=== PATIENT | male | born 1945 | race Caucasian/White ===

== ENCOUNTER 2019-04-01 10:13 | Outpatient (CLI) | payer OTHER ==
--- NOTE | 2019-04-01 11:17 | RAD ---
Cervical spine neutral lateral, extension lateral, and flexion lateral views: 04/01/2019 COMPARISON: None HISTORY: Cervical pain FINDINGS: Neutral lateral examination demonstrates mild anterolisthesis at C3-4 measuring 2-3 mm. Macie tral imaging also demonstrates minimal anterolisthesis at C2-3 measuring in the 2-3 mm range. At C5-6 and C6-7 there is disc space narrowing with degenerative endplate change as well as anterior osteophyte formation. The extension imaging demonstrates anterolisthesis at C2-3 measuring approximately 2-3 mm and at C3-4 measuring approximately 2-3 mm. On flexion imaging there is anterolisthesis at C2-C3 measuring approximately 3 mm, and at C3-4 measuring approximately 2-3 mm. IMPRESSION: Mild multilevel anterolisthesis within the cervical spine. Degenerative changes as detail ed above.
--- NOTE | 2019-04-01 11:20 | RAD ---
3 views of the lumbar spine: 04/01/2019 HISTORY: Back pain with right lower extremity radiculopathy FINDINGS: Neutral lateral flexion and extension imaging is provided. There is a mild superior endplat e fracture of the L2 vertebral body, as seen on prior CT performed 05/21/2013. There is multilevel disc space narrowing throughout the lumbar spine, most prominent at the L4-5 level. There is anterior osteophyte formation at multiple levels within the lumbar spine as well. Bilateral laminectomy changes are present at L3, L4, and L5. Prominent multilevel lower lumbar spine facet hypertrophy is p resent. On the upright neutral lateral radiograph there is no significant anterolisthesis or retrolisthesis. There is extensive atherosclerotic calcification of the abdominal aorta. The extension imaging and flexion imaging demonstrates no significant anterolisthesis or retrolisthes is. IMPRESSION: Severe multilevel degenerative change within the lumbar spine as detailed above. No acute osseous abnormality is evident.
== END 2019-04-01 10:14 | disposition home or self-care (01) ==
LOC: TBSIIMAG 10:13
PROVIDERS: ATTEND Neurological Surgery
DX: M50.20 Other cervical disc displacement, unspecified cervical region (principal); M48.062 Spinal stenosis, lumbar region with neurogenic claudication; M47.816 Spondylosis without myelopathy or radiculopathy, lumbar region; M43.12 Spondylolisthesis, cervical region; M47.812 Spondylosis without myelopathy or radiculopathy, cervical region
CPT/HCPCS: 72040; 72100

== ENCOUNTER 2019-05-21 06:36 | Outpatient (CLI) | payer OTHER ==
[2019-05-21 13:23] LABS: Hemoglobin 13.2 g/dL (14.0-18.0); Mean Corpuscular HGB CONC 34.6 g/dL (32.0-36.0); Mean Corpuscular Hemoglobin 31.1 pg (27.0-31.0); Mean Corpuscular Volume 90.1 fL (78.0-98.0); Mean Platelet Volume 6.6 fL (7.4-10.4); Platelet Count 292 thou/uL (130-400); RBC Distribution Width 12.6 % (11.5-14.5); Red Blood Cell (RBC) Count 4.25 mill/uL (4.70-6.10); White Blood Cell (WBC) Count 7.7 thou/uL (4.8-10.8)
[2019-05-21 13:32] LABS: Prothrombin Time 13.1 SEC (12.0-14.7)
[2019-05-21 13:33] LABS: PTT 31.6 SEC (22.9-36.1)
[2019-05-21 13:51] LABS: Anion Gap 12 mmol/L (10-20); BUN (Urea Nitrogen) 17 mg/dL (8.4-25.7); Calc. Creatinine Clearance 0 mL/min (70-130); Calcium 9.1 mg/dL (7.8-10.44); Carbon Dioxide 30 mmol/L (23-31); Chloride 95 mmol/L (98-107); Estimated GFR-MDRD 83; Glucose 108 mg/dL (83-110); Potassium 3.6 mmol/L (3.5-5.1); Sodium 133 mmol/L (136-145)
== END 2019-05-21 06:37 | disposition home or self-care (01) ==
LOC: LABBT 06:36
PROVIDERS: ATTEND Neurological Surgery
DX: Z01.812 Encounter for preprocedural laboratory examination (principal); M47.12 Other spondylosis with myelopathy, cervical region
CPT/HCPCS: 80048; 85027; 85610; 85730

== ENCOUNTER 2019-05-23 05:22 | Day surgery (SDC) | payer OTHER ==
[2019-05-21 11:10] VITALS: BMI 22.8
[2019-05-23] MEDS ORDERED: Thrombin 5000 UNITS/5 ML VIAL ONE (06:09)
[2019-05-23] MEDS ORDERED: Sodium Chloride 0.9% 10 ML ONE (06:09)
[2019-05-23] MEDS ORDERED: Fentanyl 100 MCG/2 ML VIAL ONE ×2 (06:55→10:56)
[2019-05-23] MEDS ORDERED: Midazolam HCl 2 mg/2 ml Vial ONE (06:55)
--- NOTE | 2019-05-23 08:16 | HP ---
HISTORY OF PRESENT ILLNESS: Mr. Garcia is a 73-year-old man, who returns to our clinic with earlier for severe neurogenic claudication. However, he had brisk reflexes on that exam along with some hand dysfunction and imbalance, which prompted imaging of the cervical spine. The patient continues to fall from imbalance and has been dropping things from his hands often. In addition, lumbar stenosis causes neurogenic claudication. REVIEW OF SYSTEMS: A 10-point review of systems is completed and is negative other than stated in the above HPI. MEDICAL HISTORY: Asthma, hyperlipidemia, cataracts, hypertension. PAST SURGICAL HISTORY: Right L5-S1 diskectomy at 72, right L5-S1 discectomy at 78, L3 through L5 decompression laminectomy in 2017. FAMILY HISTORY: Father is . Mother is . SOCIAL HISTORY: The patient is a former smoker. Has exposure to other tobacco uses. Uses alcohol. Denies illicit drugs and is sexually active. MEDICATIONS: 1. Albuterol. 2. Aspirin 81 mg. 3. Atenolol. 4. Budesonide. 5. Formoterol fumarate. 6. Duloxetine. 7. Ferrous sulfate. 8. Gabapentin. 9. Hydrochlorothiazide. 10. Vyvanse. 11. Multivitamin. 12. Omeprazole. ALLERGIES: NO KNOWN DRUG ALLERGIES. PHYSICAL EXAMINATION: CONSTITUTIONAL: The patient is alert and oriented. Nontoxic appearing. RESPIRATIONS: Normal work of breathing on room air. NEUROLOGIC: The patient's tandem gait impossible. Motor exam, intrinsic hand muscle atrophy and weakness. Sensory exam is nondermatomal, loss of fingers sensation. Reflex exam, overly brisk knee and ankle jerks. IMAGING: Cervical spine MRI, pain at C1-2 cord posteriorly. Cord compression at C5-6 and some at C6-7. ASSESSMENT AND PLAN: Mr. Garcia is a 73-year-old, who has a cervical disk disorder at C5-6 and C6-[address] Delgado would like to do an anterior cervical diskectomy at C5 through 7. The patient states that he understands his risks and is willing to proceed with surgery. Job ID: [id number]
[2019-05-23] MEDS ORDERED: Morphine 2 MG/ML SYRINGE ONE (13:06)
[2019-05-23] MEDS ORDERED: Rocuronium Bromide 10 MG/ML (10ML VIAL) ONE (13:15)
[2019-05-23] MEDS ORDERED: Ondansetron PF 4 MG/2 ML Vial ONE (13:15)
[2019-05-23] MEDS ORDERED: Lidocaine 1% PF 5 ML VIAL ONE (13:15)
[2019-05-23] MEDS ORDERED: PROPOFOL 200 MG/20 ML VIAL ONE (13:15)
[2019-05-23] MEDS ORDERED: Glycopyrrolate 0.2 MG/ML 5 ML SYRINGE ONE (13:15)
[2019-05-23] MEDS ORDERED: ePHEDrine/0.9% NaCl/PF SYRINGE 50 mg/10 ml ONE (13:15)
--- NOTE | 2019-05-23 14:07 | OP ---
DATE OF PROCEDURE: 05/23/2019 BOX MAKER: Alva Nguyen PA-C PREOPERATIVE INDICATION: Prevent neurological deterioration. PREOPERATIVE DIAGNOSES: Cervical intervertebral disk disease with cord compression at C5-C6 and C6-C7, early spondylotic myelopathy. POSTOPERATIVE DIAGNOSES: Cervical intervertebral disk disease with cord compression at C5-C6 and C6-C7, early spondylotic myelopathy. PROCEDURES PERFORMED: Anterior cervical diskectomy, intervertebral arthrodesis, placement of intervertebral biomechanical device at C5-C6 and C6-C7, anterior cervical plating at C5-C6 and C6-C7, local morselized autograft, morselized allograft, operating microscope. PREOPERATIVE MEDICATION: Ancef 2 g IV. DRAIN NUMBER: Zero. DRAIN TYPE: None. DESCRIPTION OF PROCEDURE: The patient was brought to the operating room. General endotracheal anesthesia was induced. The patient was carefully positioned on the operating table with his head supported by a gel-filled donut-shaped headrest. A lateral fluoro radiograph was used to plan our incision. The right side of the neck was sterilely prepped and draped. We opened our incision with a 10 blade knife and controlled bleeding with bipolar cautery. We dissected sharply to the platysma and cut this muscle in line with our incision. We continued our dissection medial to the sternocleidomastoid and lateral to the trachea and esophagus. We arrived at the prevertebral space and placed a marker at C5-C6. A lateral fluoro radiograph confirmed the levels upon which we were operating. We elevated the longus colli muscles off the anterior surface of C5, C6, and C7, and placed a self-retaining lateral retractor beneath the muscles. Distraction pins were placed in C5 and C7 and we distracted across the two intervening interspaces. These interspaces were opened with a 15-blade knife. We removed disk contents using curettes and rongeurs. The operating microscope was brought into the field. Under microscopic magnification and using microsurgical techniques, we carefully removed the remainder of the intervertebral disk. We accessed the ventral epidural space with a micro curette at both the interspaces. We used 1 and then 2 mm Kerrison rongeurs. We removed posterior osteophytes and posterior longitudinal ligament from one neural foramen all the way to the other neural foramen at C5-C6 and again at C6-C7. Once the dura was well decompressed, we turned our attention to arthrodesis. With curettes, we prepared the endplates for grafting. We measured the height of each interspace to 7 mm with a bone rasp. We brought two separate 7 mm PEEK intervertebral grafts into the field. Osteophytes were removed during our decompression were cleaned of soft tissue attachments, morcellized and added into demineralized bone matrix as our fusion substrate. The substrate was used to fill the interbody devices and these were advanced into the interspaces under radiographic guidance to the appropriate depth. I took the operating microscope out of the field and removed our distraction pins. The 31 mm anterior cervical plate was brought into the field. We drilled company pilot holes through the plate into the vertebral bodies at C5, C6, and C7, and we affixed the plate with fixed angle screws at C7 and variable angle screws at C5 and C6. These screws were 14 mm in length. We engaged the locking mechanism over each of the 6 screws. AP and lateral fluoro radiographs confirmed adequate positioning of our instrumentation. We irrigated with bacitracin irrigation. We closed the wound in anatomical layers and we applied sterile dressing. This was a clean case, no contamination. Job ID: [id number]
[2019-05-23] MEDS ORDERED: Tamsulosin HCl 0.4 MG CAP ONE (16:27)
[2019-05-23] MEDS ORDERED: HYDROcodone/Acetaminophen 5/325 mg Tablet ONE ×2 (18:15)
== END 2019-05-23 20:30 | disposition home or self-care (01) ==
LOC: SDC 05:22
PROVIDERS: ATTEND Neurological Surgery
PROC: 0RG20A0 Fusion of 2 or more Cervical Vertebral Joints with Interbody Fusion Device, Anterior Approach, Anterior Column, Open Approach (ICD-10-PCS; principal; 2019-05-23)
PROC: 0RT30ZZ Resection of Cervical Vertebral Disc, Open Approach (ICD-10-PCS; principal; 2019-05-23)
DX: M50.022 Cervical disc disorder at C5-C6 level with myelopathy (principal); M47.12 Other spondylosis with myelopathy, cervical region; M48.062 Spinal stenosis, lumbar region with neurogenic claudication; J45.909 Unspecified asthma, uncomplicated; E78.5 Hyperlipidemia, unspecified; I10 Essential (primary) hypertension; Z87.891 Personal history of nicotine dependence; Z79.82 Long term (current) use of aspirin; Z79.899 Other long term (current) drug therapy; Z98.890 Other specified postprocedural states
CPT/HCPCS: 51798; 76000; C1713; C1776; J0690; J2001; J2250; J2270; J2405; J2704; J3010; J3490; L0174

== ENCOUNTER 2019-06-10 13:52 | Outpatient (CLI) | payer OTHER ==
--- NOTE | 2019-06-10 14:12 | RAD ---
EXAM: XR Lumbar Spine 2 Or 3 View PROVIDED CLINICAL HISTORY: Lumbar radiculopathy. COMPARISON: 04/01/2019. FINDINGS: There is right convex scoliosis of the thoracolumbar spine centered at the L2-3 level. Multilevel ost eophytes are present. There is narrowing of the intervertebral disc spaces at all levels greatest involving the lower lumbar spine. Compression fractures of the L1 and L2 vertebral bodies are again s een with degree of height loss unchanged from prior study. Laminectomy defects are again seen at the L3-4 and L4-5 levels. Anterior osteophyte formation is seen at multiple levels. There is straight ening of the normal lumbar curvature. No abnormal translational motion is seen between the flexion and extension views of the lumbar spine. Prominent vascular calcifications are again seen in the abdominal aorta and involving the iliac arter ies. IMPRESSION: 1. Right convex scoliosis with multilevel degenerative changes similar to prior study. 2. Stable height loss of compression fractures involving the L1 and L2 vertebral bodies.
--- NOTE | 2019-06-10 14:18 | RAD ---
EXAM: XR Cerv Sp Ap Lat STANDARD PROVIDED CLINICAL HISTORY: Cervical HNP. COMPARISON: 04/01/2019 FINDINGS: There has been interval postsurgical changes related to anterior cervical fusion with an anterior wu te and screws transfixing the C5-6 and C6-7 levels. Intradiscal prostheses are present at these levels. No hardware complication is seen. C1 to the cervicothoracic junction is seen on the lateral v iew. No fracture or subluxation is seen. There is straightening of the normal cervical lordotic curvature. The odontoid is obscured on the odontoid views due to overlying osseous structures. Mild d egenerative disc changes are seen in the cervical spine. Prevertebral soft tissues are within normal limits. There is been no other interval change. Dense vascular calcifications are seen in the left carotid arteries. IMPRESSION: 1. Interval postsurgical changes related to anterior cervical fusion at the C5-6 and C6-7 levels. 2. Prominent vascular calcifications in the left carotid arteries.
== END 2019-06-10 13:53 | disposition home or self-care (01) ==
LOC: TBSIIMAG 13:52
PROVIDERS: ATTEND Neurological Surgery
DX: M47.26 Other spondylosis with radiculopathy, lumbar region (principal); M50.20 Other cervical disc displacement, unspecified cervical region; I65.22 Occlusion and stenosis of left carotid artery; M41.86 Other forms of scoliosis, lumbar region; S32.019D Unspecified fracture of first lumbar vertebra, subsequent encounter for fracture with routine healing; S32.029D Unspecified fracture of second lumbar vertebra, subsequent encounter for fracture with routine healing; Z98.1 Arthrodesis status
CPT/HCPCS: 72040; 72100

== ENCOUNTER 2019-07-22 14:36 | Outpatient (CLI) | payer OTHER ==
--- NOTE | 2019-07-22 15:03 | RAD ---
Cervical spine 4 views: 07/22/2019 COMPARISON: 06/10/2019 HISTORY: Cervical radiculopathy FINDINGS: Anterior discectomy and fusion hardware is present at C5-6/C6-7. On the swimmer's lateral view there is anterolisthesis at C3-4 measuring approximately 4 mm, increase d from the standard lateral view which demonstrates less than 2 mm of anterolisthesis at C3-4. Open-mouth odontoid view demonstrates a grossly unremarkable dens and C1-2 articulation. Frontal imaging demonstrates multilevel mid cervical spine facet and uncovertebral osteophyte formati on, left greater than right. There is atherosclerotic calcification overlying the carotid vasculature on the left. IMPRESSION: Degenerative and postoperative change within the cervical spine as detailed above. Chris listhesis at C3-4, most prominent on the swimmer's lateral view.
--- NOTE | 2019-07-22 15:07 | RAD ---
EXAM: XR Lumbar Spine 2 Or 3 View PROVIDED CLINICAL HISTORY: Lumbar radiculopathy. Difficulty walking and back pain. History of back surgery. COMPARISON: 06/10/2019 FINDINGS: Again noted are compression fractures involving the L1 and L2 vertebral bodies with suggestion of a m ild compression fracture involving the superior endplate of the T12 vertebral body. The fracture deformities are overall stable compared to the prior exam. No new compression fracture is seen. Promi nent anterior osteophytes are present. There is narrowing of the intervertebral disc spaces at all levels of the lower thoracic as well as involving the lumbar spine. Facet degenerative changes in the lower lumbar spine with laminectomy defects again present in the lower lumbar spine. There is no evidence of a subluxation or abnormal translational motion seen between the flexion and extension vie ws lumbar spine. Vascular calcifications are again seen in the abdominal aorta and involving the iliac arteries. IMPRESSION: 1. Stable degree of height loss involving compression fractures of the superior endplates of the T12, L1, and L2 vertebral bodies. 2. Multilevel degenerative changes as well as postoperative changes. 3. Straightening of normal lumbar curvature.
== END 2019-07-22 14:37 | disposition home or self-care (01) ==
LOC: TBSIIMAG 14:36
PROVIDERS: ATTEND Neurological Surgery
DX: M47.22 Other spondylosis with radiculopathy, cervical region (principal); M54.16 Radiculopathy, lumbar region; M48.54XA Collapsed vertebra, not elsewhere classified, thoracic region, initial encounter for fracture; M48.56XA Collapsed vertebra, not elsewhere classified, lumbar region, initial encounter for fracture; Z98.1 Arthrodesis status
CPT/HCPCS: 72040; 72100

== ENCOUNTER 2019-07-30 10:54 | Outpatient (CLI) | payer OTHER ==
[2019-07-30 11:58] LABS: PTT 28.8 SEC (22.9-36.1); Prothrombin Time 13.2 SEC (12.0-14.7)
[2019-07-30 12:13] LABS: Hemoglobin 12.8 g/dL (14.0-18.0); Mean Corpuscular HGB CONC 33.3 g/dL (32.0-36.0); Mean Corpuscular Hemoglobin 30.6 pg (27.0-31.0); Mean Platelet Volume 7.2 fL (7.4-10.4); Platelet Count 246 thou/uL (130-400); RBC Distribution Width 12.2 % (11.5-14.5); Red Blood Cell (RBC) Count 4.17 mill/uL (4.70-6.10); White Blood Cell (WBC) Count 7.1 thou/uL (4.8-10.8)
== END 2019-07-30 10:55 | disposition home or self-care (01) ==
LOC: LABBT 10:54
PROVIDERS: ATTEND Neurological Surgery
DX: Z01.818 Encounter for other preprocedural examination (principal); M47.816 Spondylosis without myelopathy or radiculopathy, lumbar region; M48.061 Spinal stenosis, lumbar region without neurogenic claudication
CPT/HCPCS: 85027; 85610; 85730; 93005; 93010

== ENCOUNTER 2019-08-01 10:16 | Inpatient (IN) | payer OTHER ==
[~2019-08-01 10:16] MED LIST: Dexamethasone 20 MG/5 ML VIAL ONE; Glycopyrrolate 0.2 MG/ML 5 ML SYRINGE ONE; Lidocaine 1% PF 5 ML VIAL ONE; Ondansetron PF 4 MG/2 ML Vial ONE; PHENYLEPHRINE-NS 100 MCG/ML 10 ML SYRINGE ONE; PROPOFOL 200 MG/20 ML VIAL ONE; Rocuronium Bromide 10 MG/ML (10ML VIAL) ONE; ePHEDrine/0.9% NaCl/PF SYRINGE 50 mg/10 ml ONE
[2019-08-01] MEDS ORDERED: Thrombin 5000 UNITS/5 ML VIAL ONE (11:50)
[2019-08-01] MEDS ORDERED: Bupivacaine PF 0.5% 30 ML VIAL ONE (11:50)
--- NOTE | 2019-08-01 12:01 | HP ---
REASON FOR ADMISSION: "I'm here for my low back surgery. " HISTORY OF PRESENT ILLNESS: Kunal Garcia returns to [facility]. He has been a patient in our clinic and was referred to us for severe neurogenic claudication. His regional examination suggested myelopathy and indeed there was cord compression in the cervical spine. We decompressed the cord at C5-C6 and C6-7 with ACDF. He has recovered nicely from the surgery but now wants to address his low back. He has had back surgery before, but his neurogenic claudication is worsening. He cannot stand for more than 5 minutes without severe aching in both posterior thighs. The aching turns to numbness and eventually leads to weakness. He has to sit or bend over in order to relieve the symptoms. He has not lost strength in the sitting position, but he can hardly stand long enough to walk 100 yards. His imaging suggested severe lumbar stenosis above and at levels of previous decompression as well as foraminal disease. We are to address those. PAST MEDICAL HISTORY: Asthma, hyperlipidemia, cataracts, and hypertension. PAST SURGICAL HISTORY: ACDF C5-6 and C6-7 in 2019. Right L5-S1 diskectomy x2 in the and 1980s. He had an L3-L5 laminectomy in 2017. FAMILY HISTORY: His father is as is his mother. SOCIAL HISTORY: Mr. Garcia is a former smoker, recently having quit. He drinks alcoholic beverages from time to time, but avoids illicit drugs. ADMISSION MEDICATIONS: 1. Albuterol. 2. Aspirin. 3. Atenolol. 4. Budesonide/formoterol fumarate. 5. Duloxetine. 6. Ferrous sulfate. 7. Gabapentin. 8. Hydrochlorothiazide. 9. Vyvanse. 10. Multivitamins. 11. Omeprazole. 12. Sildenafil citrate. ALLERGIES: NO KNOWN DRUG ALLERGIES. REVIEW OF SYMPTOMS: Otherwise negative. PHYSICAL EXAMINATION: GENERAL: Mr. Garcia is 5 feet 9 inches tall, weighs about 160 pounds. NEUROLOGIC: On examination, Mr. Garcia is wide awake. His speech is fluent without dysarthria, dysphagia. His cognitive function is intact. His motor examination of lower extremities reveals normal strength in the iliopsoas and the quadriceps and hamstring. There is a right-sided weakness in the EHL, but the anterior tib is about 4/5 compared to normal on the left. The sensory examination of lower extremities reveals decreased sensation in the L5 distribution on the right foot including the great toe. Reflexes are normal and symmetric at the knees and the ankles. His clonus is present, but improved since ACDF. ADMISSION FINDINGS AND TEST RESULTS: MR imaging of the lumbar spine shows previous decompression from L3 to the sacrum. He has L2-3 stenosis along with L3-4 stenosis. There is foraminal disease on the right at L5-S1. Flexion/extension, no instability. IMPRESSION: 1. Neurogenic claudication, severe. 2. Lumbar spinal stenosis. 3. Lumbar foraminal stenosis. Mr. Garcia made a good recovery from ACDF. He would like his neurogenic claudication treated. We will take him to the operating room for decompressive laminectomy. We will address L5-S1 foramen as well. We are going to avoid fusion. INFORMED CONSENT: Discussed in the office at length. Job ID: [id number]
[2019-08-01] MEDS ORDERED: Fentanyl 100 MCG/2 ML VIAL ONE ×3 (12:15→16:19)
[2019-08-01] MEDS ORDERED: Promethazine HCl 25 MG/ML VIAL SLOW IVP PRN ×2 (13:34→17:33)
[2019-08-01] MEDS ORDERED: Ondansetron HCl/PF 4 MG/2 ML Vial IVP PRN ×2 (13:34→17:33)
[2019-08-01] MEDS ORDERED: HYDROmorphone 2 MG/ML VIAL SLOW IVP PRN (13:34)
[2019-08-01] MEDS ORDERED: Meperidine HCl/PF 25 MG/ML VIAL SLOW IVP PRN (13:34)
[2019-08-01] MEDS ORDERED: SUGAMMADEX SODIUM 200 MG/2 ML VIAL ONE (17:20)
[2019-08-01] MEDS ORDERED: Acetaminophen/Codeine 30-300mg Tablet PO PRN ×2 (17:22)
[2019-08-01] MEDS ORDERED: Milk Of Magnesia 30 ML UDCUP PO PRN (17:22)
[2019-08-01] MEDS ORDERED: diphenhydrAMINE 50 MG/ML VIAL IVP PRN (17:22)
[2019-08-01] MEDS ORDERED: Morphine 2 MG/ML SYRINGE SLOW IVP PRN (17:22)
[2019-08-01] MEDS ORDERED: diphenhydrAMINE 25 MG CAP PO PRN (17:22)
[2019-08-01] MEDS ORDERED: Acetaminophen 325 MG TAB PO PRN (17:22)
[2019-08-01] MEDS ORDERED: tiZANidine HCl 4 MG TAB PO PRN (17:22)
[2019-08-01] MEDS ORDERED: Promethazine HCl 12.5 MG SUPP PR PRN (17:22)
[2019-08-01] MEDS ORDERED: Promethazine 25 MG TAB PO PRN (17:22)
[2019-08-01] MEDS ORDERED: traMADol HCl 50 MG TAB PO PRN ×2 (17:22)
[2019-08-01] MEDS ORDERED: Mag-Al 1200 mg/1200 mg/30 ML UDCUP PO PRN (17:22)
[2019-08-01] MEDS ORDERED: Morphine 4 MG/ML VIAL SLOW IVP PRN (17:22)
[2019-08-01] MEDS ORDERED: HYDROcodone/Acetaminophen 7.5/325 mg Tablet PO PRN ×2 (17:22)
[2019-08-01] MEDS ORDERED: Ondansetron PF 4 MG/2 ML Vial IVP PRN (17:22)
[2019-08-01] MEDS ORDERED: Bisacodyl 10 MG SUPP PR PRN (17:22)
[2019-08-01] MEDS ORDERED: Acetaminophen 650 MG Suppository PR PRN (17:22)
[2019-08-01] MEDS ORDERED: Promethazine HCl 25 MG/ML VIAL IM PRN ×2 (17:22→17:33)
[2019-08-01] MEDS ORDERED: Sodium Chloride 0.9% 1,000 ML IV SCH (17:30)
[2019-08-01] MEDS ORDERED: Scopolamine 1.5 mg/72 hour Patch TD SCH (17:30)
[2019-08-01] MEDS ORDERED: CEFAZOLIN 2 GM in Premix Bag 1 BAG IVPB SCH (18:30)
--- NOTE | 2019-08-01 18:57 | OP ---
DATE OF PROCEDURE: 08/01/2019 ACETYLENE OPERATOR: Jah Wood PA-C PREOPERATIVE INDICATION: Treat pain and prevent neurological deterioration. PREOPERATIVE DIAGNOSIS: Multilevel lumbar stenosis, recurrent after previous surgery, with neurogenic claudication. POSTOPERATIVE DIAGNOSIS: Multilevel lumbar stenosis, recurrent after previous surgery, with neurogenic claudication. PROCEDURES PERFORMED: Reopening lumbar incision, repeat decompressive laminectomy, medial facetectomy, and foraminotomy at L2-L3, L3-L4, and right L5-S1 operating microscope. PREOPERATIVE MEDICATION: Ancef 2 g IV. DRAIN: Zero. DRAIN TYPE: None. DESCRIPTION OF PROCEDURE: The patient was brought to the operating room. General endotracheal anesthesia was induced. The patient was carefully positioned prone on the operating table with the chest and hips supported by gel-filled chest rolls. A lateral fluoro radiograph confirmed that the previous incision would give us good access from L2-S1. The lumbar skin was sterilely prepped and draped. We reopened the previous incision with a 10 blade knife and controlled bleeding with bipolar and monopolar cautery. We used monopolar cautery to dissect through subcutaneous tissues to the thoracodorsal fascia. We incised the fascia and scar tissue in the midline and reflected the scar tissue and paraspinal muscles off the spinous process and lamina of L2 and the remnant of L3. We dissected the scar tissue over to the remnant of the lamina of L4, L5, and S1. A lateral fluoro radiograph confirmed the levels upon which we were operating. We then used an Adson rongeur to remove the spinous process of L2. Kerrison rongeurs were used to fashion a laminectomy. This involved curetting scar tissue off the lateral confines of the spinal canal in careful and meticulous fashion until we could visualize the lateral aspect of the dura on both sides. The operative microscope was brought into the field during this process. Under microscopic magnification and using microsurgical techniques, we carefully dissected the scar tissue and dura free off the lateral spinal canal. We performed medial facetectomy at L2-L3 and L3-L4 and foraminotomies over the L2, L3, L4 and right L5 and S1 nerve roots. When we had a nice decompression at L2-L3, L3-L4 and on the right side at L5 and S1, we irrigated with bacitracin irrigation. We ensured a Correa ball probe could pass through the lateral recess and out the foramina with each of the nerve roots were decompressed. We irrigated once again with bacitracin irrigation and infused local anesthetic in the paraspinal muscles. We treated the wound with vancomycin powder and we closed in anatomical layers. We applied a sterile dressing. This was a clean case, no contamination. Job ID: [id number]
[2019-08-01] MEDS ORDERED: hydrALAZINE 20 MG/ML VIAL SLOW IVP PRN (20:41)
[2019-08-01] MEDS ORDERED: Labetalol HCl 100 MG/20 ML VIAL SLOW IVP PRN (20:41)
[2019-08-01] MEDS: Gabapentin 300 MG CAP PO SCH (20:53)
[2019-08-01] MEDS ORDERED: Atorvastatin Calcium 10 MG TAB PO SCH (21:00)
[2019-08-01] MEDS ORDERED: DULoxetine 60 MG CAP PO SCH (21:00)
[2019-08-01] MEDS ORDERED: Tamsulosin HCl 0.4 MG CAP PO SCH (23:30)
[2019-08-01] MEDS: CEFAZOLIN 2 GM in Premix Bag 1 BAG IVPB SCH (23:45)
[2019-08-02 00:26] VITALS: BMI 22.1
[2019-08-02] MEDS ORDERED: Tamsulosin HCl 0.4 MG CAP PO SCH (06:00)
[2019-08-02] MEDS ORDERED: Lisinopril 20 MG TAB PO PRN (07:49)
[2019-08-02 07:50] VITALS: BP 153/69; TEMP 97.7
[2019-08-02] MEDS ORDERED: Labetalol HCl 100 MG/20 ML VIAL SLOW IVP PRN (07:50)
[2019-08-02] MEDS ORDERED: Polyethylene Glycol 3350 17 GM Packet PO PRN (07:53)
--- NOTE | 2019-08-02 08:22 | PRG ---
DATE OF SERVICE: 08/02/2019 Mr. Garcia is one day out from a multisegment lumbar laminectomy which is a redo procedure with scar tissue dissection. He already feels better than he did before surgery. He has been up and walking without the pain that he had before his operation. The back is sore. He has been having a little bit of difficulty emptying his bladder. This has happened to him at home before, however. Among the vital signs, I do not see any fevers recorded. His blood pressures have been in the 110s to 170s since surgery. They are lower this morning. He has no new deficits on his exam. Mr. Garcia may begin mobilization. If he is safe for activities of daily living, can get in and out of bed on his own, can empty his bladder better, can keep his food down, and can dress himself, then he can be discharged home today. We went over activity restrictions and followup arrangements. Job ID: [id number] [facility]
[2019-08-02] MEDS ORDERED: Atenolol 25 MG TAB PO SCH (09:00)
[2019-08-02] MEDS ORDERED: Hydrochlorothiazide 25 MG TAB PO SCH (09:00)
[2019-08-02] MEDS ORDERED: Senokot S 8.6-50 MG TAB PO SCH (09:00)
[2019-08-02] MEDS ORDERED: Ferrous Sulfate 325 MG TAB PO SCH (09:00)
[2019-08-02] MEDS ORDERED: Lisinopril 10 MG TAB PO SCH (09:00)
[2019-08-02] MEDS ORDERED: Atenolol 50 MG TAB PO SCH (09:00)
[2019-08-02] MEDS ORDERED: Non-Formulary Item 1 EACH (Symbicort 2 PUFF) INH SCH (09:00)
[2019-08-02] MEDS ORDERED: Lisinopril 20 MG TAB PO SCH (09:00)
[2019-08-02] MEDS: Gabapentin 300 MG CAP PO SCH (09:25)
[2019-08-02] MEDS: CEFAZOLIN 2 GM in Premix Bag 1 BAG IVPB SCH (09:28)
--- NOTE | 2019-08-02 18:41 | PDOC.HOSPP ---
- Subjective Encounter Date: 08/02/19 Encounter Time: 08:45 Subjective: Patient seen and examined for med mngt. Follow [facility]. Pain controlled. No fever or chills. No new complaints. No overnight events - Objective Vital Signs & Weight: Vital Signs (12 hours) Temp Pulse Resp BP BP Pulse Ox 08/02/19 09:23 153/69 H 08/02/19 09:20 74 153/69 H 08/02/19 07:23 97.7 F 74 18 153/69 H 95 Weight Weight 152 lb I&O: 08/01/19 08/02/19 08/03/19 06:59 06:59 06:59 Intake Total 1600 Output Total 1848 Balance -248 Additional Labs: Laboratory Tests 02/16/13 05/21/19 05:08 12:30 Sodium 133 L BUN 17 Creatinine 0.89 Triglycerides 153 H Cholesterol 185 EKG Reviewed by me: Yes (SR) Hospitalist ROS - Review of Systems Respiratory: denies: cough, dry, shortness of breath, hemoptysis, SOB with excertion, pleuritic pain, sputum, wheezing, other Cardiovascular: denies: chest pain, palpitations, orthopnea, paroxysmal noc. dyspnea, edema, light headedness, other Gastrointestinal: denies: nausea, vomiting, abdominal pain, diarrhea, constipation, melena, hematochezia, other - Exam General Appearance: NAD Heart: RRR, no gallops Respiratory: no wheezes, no rales, no ronchi Gastrointestinal: non-tender, non-distended, normal bowel sounds Extremities: no cyanosis Neurological: no new deficit Psychiatric: normal affect, A&O x 3 Hosp A/P - Plan DVT proph w/SCDs HTN Dyslipidemia Mild persistent Asthma CKD 2 GERD PLAN: Hold HCTZ Reduce Lisinopril dose Reduce Atenolol dose Cont other meds Cont to monitor Full code. DPOA-family
[2019-08-02] MEDS ORDERED: Prevnar 13-Val Conj/PF 0.5 ML SYRINGE IM ONE (21:00)
== END 2019-08-02 17:27 | disposition home or self-care (01) | DRG 517 ==
LOC: SDC 10:16 → SURG A 17:25
PROVIDERS: ADMIT Neurological Surgery; ATTEND Neurological Surgery
PROC: 01NB0ZZ Release Lumbar Nerve, Open Approach (ICD-10-PCS; principal; 2019-08-01)
PROC: 01NR0ZZ Release Sacral Nerve, Open Approach (ICD-10-PCS; 2019-08-01)
DX: M48.062 Spinal stenosis, lumbar region with neurogenic claudication (principal); J45.909 Unspecified asthma, uncomplicated; E78.5 Hyperlipidemia, unspecified; I10 Essential (primary) hypertension; Z87.891 Personal history of nicotine dependence; Z98.1 Arthrodesis status; Z79.899 Other long term (current) drug therapy; Z79.82 Long term (current) use of aspirin
CPT/HCPCS: 76000; 85027; 85610; 85730; 93005; J0690; J1100; J2001; J2405; J2704; J3010; J3370; J3490; S0020

== ENCOUNTER 2020-08-12 13:36 | Outpatient (CLI) | payer MEDICARE ==
[~2020-08-12 13:36] MED LIST changes: -Dexamethasone 20 MG/5 ML VIAL ONE; -Glycopyrrolate 0.2 MG/ML 5 ML SYRINGE ONE; +Iopamidol 370 76% 100 ML VIAL ONE; -Lidocaine 1% PF 5 ML VIAL ONE; -Ondansetron PF 4 MG/2 ML Vial ONE; -PHENYLEPHRINE-NS 100 MCG/ML 10 ML SYRINGE ONE; -PROPOFOL 200 MG/20 ML VIAL ONE; -Rocuronium Bromide 10 MG/ML (10ML VIAL) ONE; -ePHEDrine/0.9% NaCl/PF SYRINGE 50 mg/10 ml ONE
--- NOTE | 2020-08-12 14:25 | CT ---
CT OF THE CHEST AND ABDOMEN WITH IV CONTRAST INDICATION: Abnormal chest radiograph from the [facility] dated July 30, 2020; suspicious no dular density in the left lung. Difficulty swallowing of upper abdominal pain COMPARISON: Chest radiograph from the [facility] dated July 30, [address] of the chest, abdomen and pelvis dated May 21, 2013 from [facility]. FINDINGS: CHEST: Lungs: No suspicious pulmonary nodule is demonstrated. The nodular density seen on the comparison exa mination may have been related to overlying nipple shadow. Pleural space: No effusion. Mediastinum: There are coronary artery and thoracic aortic calcifications. There is prominent region of mural thickening involving the mid esophagus on image 28 of series 2. No overt lymphadenopathy is evident. Axilla: No pathologically enlarged lymph nodes. ABDOMEN: Liver: No focal lesion. Gallbladder: Normal appearing. Pancreas: Normal. Adrenal glands: Normal. Spleen: Normal. Kidneys and ureters: There is an enlarging 3.3 cm cyst off the superior pole of the right kidney. The re are multiple small cysts within the left kidney. No hydronephrosis is evident. Vasculature: There are severe vascular calcifications seen involving the visualized vasculature. Lymph nodes:No lymphadenopathy. Free fluid in abdomen:No free fluid is evident. Osseous structures: There is postsurgical change of a laminectomy from L3 through L5. There are chron ic wedge compression abnormalities of L2 and L1. There is scattered degenerative and osteoarthritic changes. Soft tissues:Normal. IMPRESSION: 1. No suspicious pulmonary nodule identified. The nodular density overlying the lower left chest wall is likely related to a nipple shadow. 2. Focal mural thickening involving the mid esophagus. In light of the patient's history of difficult y swallowing, focal area of esophagitis or esophageal malignancy within this location cannot be excluded. Recommend GI consultation for direct visualization. Alternatively, a follow-up Double contr ast esophagram may be helpful for additional evaluation. 3. No acute abnormalities seen within the abdomen. There is an enlarging right superior pole renal cy st. There are multiple small cysts within the left kidney. 4. Stable mild wedge compression abnormalities of L2 and L1.
== END 2020-08-12 13:37 | disposition home or self-care (01) ==
LOC: BICCT 13:36
PROVIDERS: ATTEND Internal Medicine
DX: R91.1 Solitary pulmonary nodule (principal); R63.4 Abnormal weight loss; N28.1 Cyst of kidney, acquired; K22.8 Other specified diseases of esophagus
CPT/HCPCS: 71260; 74160; 82565; Q9967

== ENCOUNTER 2020-09-04 10:30 | Outpatient (CLI) | payer MEDICARE ==
--- NOTE | 2020-09-04 14:07 | PET ---
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 Initial staging. FINDINGS: Markedly increased radiotracer uptake is associated with the longitudinal mass at the middl e third of the esophagus. Max SUV 11.1. No abnormal uptake associated with mediastinal lymph nodes. No lung nodules evident. No pathologic uptake within the abdomen or pelvis. There are postoperative changes of the lumbar spine with [id number] muscular uptake involving the lumbar paraspinal musculature. Nondiagnostic CT attenuation correction images show prominent calcification throughout the arterial s tructures. IMPRESSION : Esophageal carcinoma. No evidence of metastatic disease.
== END 2020-09-04 10:31 | disposition home or self-care (01) ==
LOC: PET 10:30
PROVIDERS: ATTEND Internal Medicine Hematology & Oncology
DX: C15.9 Malignant neoplasm of esophagus, unspecified (principal)
CPT/HCPCS: 78815; A9552

== ENCOUNTER 2021-01-05 09:04 | Outpatient (CLI) | payer OTHER | END 2021-01-05 09:05 | disposition home or self-care (01) | LOC: PET 09:04 | PROVIDERS: ATTEND Internal Medicine Hematology & Oncology | DX: C15.9 Malignant neoplasm of esophagus, unspecified (principal); D49.0 Neoplasm of unspecified behavior of digestive system | CPT/HCPCS: 78815; A9552 ==